=== PATIENT | male | born 1970 | race Caucasian/White ===

== ENCOUNTER 2017-06-10 14:08 | Emergency (ER) | payer SELFPAY ==
[2017-06-10 14:16] VITALS: BP 206/113; PULSE 112; RESP 18; TEMP 98.2; O2SAT 96
[2017-06-10] MEDS ORDERED: ASPI1TAB57 PO (14:17)
[2017-06-10] MEDS ORDERED: B P MED (14:17)
[2017-06-10] MEDS ORDERED: SODIUM CHLORIDE 0.9% FLUSH 10 ML FLUSH IVF PRN (14:45)
[2017-06-10] MEDS ORDERED: MORPHINE SULFATE 4 MG/ML INJ IV PUSH ONE (14:45)
[2017-06-10] MEDS ORDERED: SODIUM CHLOR 0.9% 1000 ML INJ 1,000 ML IV ONE ×2 (14:45→16:00)
[2017-06-10] MEDS ORDERED: ONDANSETRON HCL 4 MG/2 ML VIAL IV PUSH ONE (14:45)
[2017-06-10] MEDS ORDERED: RESP: ALBUTEROL 2.5 MG/IPRATROPIUM 0.5 MG NEB (SCH) NEB ONE (14:45)
--- NOTE | 2017-06-10 14:50 | RADRPT ---
EXAM DATE/TIME: 06/10/2017 14:38 [facility] COMPARISON: No previous studies available for comparison. INDICATIONS : Chest pain, short of breath, cough MEDICAL HISTORY : Hypertension. SURGICAL HISTORY : None. ENCOUNTER: Initial ACUITY: 1 week PAIN SCORE: 5/10 LOCATION: Bilateral chest FINDINGS: A single view of the chest demonstrates the lungs to be symmetrically aerated without evidence of mas s, infiltrate or effusion. The cardiomediastinal contours are unremarkable. Osseous structures are intact. CONCLUSION: Normal examination. Alexander Akbar MD on June 10, 2017 at 14:47 Board Certified Radiologist. This report was verified electronically.
--- NOTE | 2017-06-10 14:50 | PD ---
HPI Chief Complaint: Chest Pain Time Seen by Provider: 14:12 Travel History International Travel<30 days: No Contact w/Intl Traveler<30days: No Traveled to known affect area: No History of Present Illness HPI The patient is a 47-year-old male who presents to the emergency department with one week of cough and cold symptoms. The patient states his symptoms started last Sunday with facial congestion, nasal congestion, and a dry nonproductive cough. The patient now states he has a productive cough producing white sputum. He now complains of bilateral anterior chest tightness with shortness of breath as well as nausea, vomiting, and epigastric abdominal pain. The pain does radiate to the back to the left parascapular area and up to the left sternocleidomastoid. The pain is worse with coughing and movement. He does complain of mild shortness of breath, does have a history of tobacco use, and drinks alcohol on a daily basis. He denies any known history of pancreatitis. He denies any fever, however, has had intermittent chills and sweats. Symptoms are moderate, there are no current alleviating or exacerbating factors. He does not have a primary physician. [facility] Past Medical History Hypertension: Yes Past Surgical History Surgical History: No Previous Surgery Social History Alcohol Use: Yes (DAILY) Tobacco Use: Yes (1PPD) Substance Use: Yes (POT) Allergies-Medications (Allergen,Severity, Reaction): Coded Allergies: cephalexin (Verified Allergy, Severe, HIVES, 06/10/17) Reported Meds & Prescriptions Reported Meds & Active Scripts Active Reported [B.p. Med] 0 Aspirin 81 (Aspirin) 81 Mg Tabdr 81 Mg PO DAILY Review of Systems Except as stated in HPI: all other systems reviewed are Neg General / Constitutional: Positive: Chills, No: Fever HENT: Positive: Lightheadedness, Congestion Cardiovascular: Positive: Chest Pain or Discomfort Respiratory: Positive: Cough, Shortness of Breath Gastrointestinal: Positive: Nausea, Vomiting, Abdominal Pain Musculoskeletal: Positive: Myalgias Skin: No Rash Neurologic: Positive: Dizziness Physical Exam Narrative GENERAL: Awake, alert, pleasant 47-year-old male who appears his stated age and is in mild respiratory distress. SKIN: Focused skin assessment warm/dry. Multiple tattoos noted. HEAD: Atraumatic. Normocephalic. EYES: Pupils equal and round. Mild injection bilaterally. ENT: No nasal bleeding or discharge. Mucous membranes pink and moist. NECK: Trachea midline. No JVD. Tenderness over the left sternocleidomastoid. No meningeal signs. CARDIOVASCULAR: Regular, tachycardic with a heart rate of 115. RESPIRATORY: No accessory muscle use. Prolonged expiratory phase with intermittent wheezes. GASTROINTESTINAL: Abdomen soft, tender in the epigastrium. No guarding or rigidity. Back: No CVA tenderness. No tenderness over the midline of the thoracic spine, however, does have tenderness over the left thoracic paravertebral muscle. MUSCULOSKELETAL: No obvious deformities. No clubbing. No cyanosis. No edema. NEUROLOGICAL: Awake and alert. No obvious cranial nerve deficits. Motor grossly within normal limits. Normal speech. Nonfocal. PSYCHIATRIC: Appropriate mood and affect; insight and judgment normal. Data Data Last Documented VS Vital Signs Date Time Temp Pulse Resp B/P (MAP) Pulse Ox O2 Delivery O2 Flow Rate FiO2 06/10/17 14:16 98.2 112 18 206/113 (144) 96 Orders Orders Electrocardiogram (06/10/17 14:31) Ckmb (Isoenzyme) Profile (06/10/17 14:31) Complete Blood Count With Diff (06/10/17 14:31) Comprehensive Metabolic Panel (06/10/17 14:31) D-Dimer (06/10/17 14:31) Magnesium (Mg) (06/10/17 14:31) Prothrombin Time / Inr (Pt) (06/10/17 14:31) Act Partial Throm Time (Ptt) (06/10/17 14:31) Troponin I (06/10/17 14:31) Lipase (06/10/17 14:31) Chest, Single Ap (06/10/17 14:31) Ecg Monitoring (06/10/17 14:31) Bilateral Bp Monitoring (06/10/17 14:31) Iv Access Insert/Monitor (06/10/17 14:31) Oximetry (06/10/17 14:31) Oxygen Administration (06/10/17 14:31) Morphine Inj (Morphine Inj) (06/10/17 14:45) Sodium Chloride 0.9% Flush (Ns Flush) (06/10/17 14:45) Ondansetron Inj (Zofran Inj) (06/10/17 14:45) Sodium Chlor 0.9% 1000 Ml Inj (Ns 1000 M (06/10/17 14:45) Albuterol-Ipratropium Neb (Duoneb Neb) (06/10/17 14:45) Lactic Acid (06/10/17 14:31) Blood Culture (06/10/17 14:31) Influenzae A/B Antigen (06/10/17 14:51) CKMB (06/10/17 14:20) CKMB% (06/10/17 14:20) Ct Pulmonary Angiogram (06/10/17 ) Sodium Chlor 0.9% 1000 Ml Inj (Ns 1000 M (06/10/17 16:00) Methylprednisolone So Succ Inj (Solumedr (06/10/17 16:00) Iohexol 350 Inj (Omnipaque 350 Inj) (06/10/17 16:00) Labs Laboratory Tests Test 06/10/17 14:20 06/10/17 14:58 White Blood Count 10.2 TH/MM3 Red Blood Count 5.45 MIL/MM3 Hemoglobin 16.5 GM/DL Hematocrit 48.1 % Mean Corpuscular Volume 88.3 FL Mean Corpuscular Hemoglobin 30.4 PG Mean Corpuscular Hemoglobin Concent 34.4 % Red Cell Distribution Width 12.3 % Platelet Count 277 TH/MM3 Mean Platelet Volume 7.6 FL Neutrophils (%) (Auto) 51.4 % Lymphocytes (%) (Auto) 37.8 % Monocytes (%) (Auto) 8.5 % Eosinophils (%) (Auto) 1.5 % Basophils (%) (Auto) 0.8 % Neutrophils # (Auto) 5.1 TH/MM3 Lymphocytes # (Auto) 3.9 TH/MM3 Monocytes # (Auto) 0.9 TH/MM3 Eosinophils # (Auto) 0.2 TH/MM3 Basophils # (Auto) 0.1 TH/MM3 CBC Comment DIFF FINAL Differential Comment Prothrombin Time 9.9 SEC Prothromb Time International Ratio 1.0 RATIO Activated Partial Thromboplast Time 27.3 SEC D-Dimer Quantitative (PE/DVT) 0.39 MG/L FEU Blood Urea Nitrogen 13 MG/DL Creatinine 1.10 MG/DL Random Glucose 73 MG/DL Total Protein 8.5 GM/DL Albumin 4.1 GM/DL Calcium Level 8.8 MG/DL Magnesium Level 2.4 MG/DL Alkaline Phosphatase 116 U/L Aspartate Amino Transf (AST/SGOT) 50 U/L Alanine Aminotransferase (ALT/SGPT) 80 U/L Total Bilirubin 0.4 MG/DL Sodium Level 138 MEQ/L Potassium Level 3.6 MEQ/L Chloride Level 104 MEQ/L Carbon Dioxide Level 22.9 MEQ/L Anion Gap 11 MEQ/L Estimat Glomerular Filtration Rate 71 ML/MIN Total Creatine Kinase 139 U/L Creatine Kinase MB 0.8 NG/ML Troponin I LESS THAN 0.02 NG/ML Lipase 155 U/L Lactic Acid Level 2.2 mmol/L [facility] Medical Decision Making Medical Screen Exam Complete: Yes Emergency Medical Condition: Yes Medical Record Reviewed: Yes Interpretation(s) EKG reveals sinus tachycardia with a heart rate of 119. QTC 377 ms. Last Impressions Chest X-Ray 06/10/17 1431 Signed Impressions: Service Date/Time: Saturday, June 10, 2017 14:38 - CONCLUSION: Normal examination. Alexander Akbar MD CT pulmonary angiogram reveals no pulmonary embolus. The lungs are clear. Laboratory Tests Test 06/10/17 14:20 06/10/17 14:58 White Blood Count 10.2 TH/MM3 Red Blood Count 5.45 MIL/MM3 Hemoglobin 16.5 GM/DL Hematocrit 48.1 % Mean Corpuscular Volume 88.3 FL Mean Corpuscular Hemoglobin 30.4 PG Mean Corpuscular Hemoglobin Concent 34.4 % Red Cell Distribution Width 12.3 % Platelet Count 277 TH/MM3 Mean Platelet Volume 7.6 FL Neutrophils (%) (Auto) 51.4 % Lymphocytes (%) (Auto) 37.8 % Monocytes (%) (Auto) 8.5 % Eosinophils (%) (Auto) 1.5 % Basophils (%) (Auto) 0.8 % Neutrophils # (Auto) 5.1 TH/MM3 Lymphocytes # (Auto) 3.9 TH/MM3 Monocytes # (Auto) 0.9 TH/MM3 Eosinophils # (Auto) 0.2 TH/MM3 Basophils # (Auto) 0.1 TH/MM3 CBC Comment DIFF FINAL Differential Comment Prothrombin Time 9.9 SEC Prothromb Time International Ratio 1.0 RATIO Activated Partial Thromboplast Time 27.3 SEC D-Dimer Quantitative (PE/DVT) 0.39 MG/L FEU Blood Urea Nitrogen 13 MG/DL Creatinine 1.10 MG/DL Random Glucose 73 MG/DL Total Protein 8.5 GM/DL Albumin 4.1 GM/DL Calcium Level 8.8 MG/DL Magnesium Level 2.4 MG/DL Alkaline Phosphatase 116 U/L Aspartate Amino Transf (AST/SGOT) 50 U/L Alanine Aminotransferase (ALT/SGPT) 80 U/L Total Bilirubin 0.4 MG/DL Sodium Level 138 MEQ/L Potassium Level 3.6 MEQ/L Chloride Level 104 MEQ/L Carbon Dioxide Level 22.9 MEQ/L Anion Gap 11 MEQ/L Estimat Glomerular Filtration Rate 71 ML/MIN Total Creatine Kinase 139 U/L Creatine Kinase MB 0.8 NG/ML Troponin I LESS THAN 0.02 NG/ML Lipase 155 U/L Lactic Acid Level 2.2 mmol/L Differential Diagnosis Differential diagnosis includes bronchitis, pneumonia, ACS, pulmonary embolism, sepsis, pancreatitis, aortic dissection, influenza, viral syndrome. Narrative Course IV was established, labs are drawn and sent, and the patient was placed on cardiac telemetry monitoring and continuous pulse oximetry monitoring. EKG was ordered and interpreted. Influenza screen was sent to lab. Chest x-ray was obtained. The patient was administered morphine, Zofran, and IV fluids. Blood culture and lactic acid were sent to lab. The patient's troponin was unremarkable. CPK was normal. White count was within normal limits. Chest x- ray was unremarkable. The patient had tachycardia with unexplained chest pain and cough, therefore, CT pulmonary angiogram was ordered. CT pulmonary angiogram is negative, no evidence of pulmonary embolus. Patient's lipase is unremarkable. Patient most likely has a viral syndrome with secondary dehydration, lactic acid was 2.2. The patient's heart rate did improve with IV fluids. The patient be discharged home, will be treated for bronchitis with steroids, albuterol inhaler, cough medicine, and Zithromax. He is advised to follow-up with a primary physician. Diagnosis Primary Impression: Bronchitis Additional Impression: Atypical chest pain Patient Instructions: General Instructions Additional Instructions: Medications as directed. Follow-up with your primary physician. Stop smoking. Decrease alcohol intake. Please provide the patient a copy of his chest x- ray results, CT results, and lab results at discharge. Return if symptoms worsen or progress. Med/Other Pt SpecificInfo: Prescription(s) given Scripts Promethazine-Codeine Liq (Promethazine-Codeine Liq) 6.25-10 Mg/5 Ml Syrp 10 ML PO Q6H Y for COUGH AND/OR COLD SYMPTOMS, #480 ML 0 Refills Prov: Zeke Rose MD 06/10/17 Albuterol 18 GM Inh (Ventolin Hfa 18 GM Inh) 90 Mcg/Act Aer 2 PUFF INH Q4H Y for SHORTNESS OF BREATH, #1 INHALER 0 Refills Prov: Zeke Rose MD 06/10/17 Azithromycin (Zithromax Z-Jorge) 250 Mg Dspk 250 MG PO DIRECTED for Infection, #1 DSPK 0 Refills 500 MG (2 tabs) day 1, then 1 tab days 2-5. Prov: Zeke Rose MD 06/10/17 Prednisone (Deltasone) 20 Mg Tab 40 MG PO DAILY for 4 Days, #8 TAB 0 Refills Prov: Zeke Rose MD 06/10/17 Disposition: 01 DISCHARGE HOME Condition: Stable Zeke Rose MD Jun 10, 2017 14:50
[2017-06-10 15:01] LABS: AUTOMATED NEUTROPHIL # 5.1 TH/MM3 (1.8-7.7); BASOPHIL # 0.1 TH/MM3 (0-0.2); BASOPHIL % 0.8 % (0.0-2.0); EOSINOPHIL # 0.2 TH/MM3 (0-0.4); EOSINOPHIL % 1.5 % (0.0-4.0); HEMATOCRIT 48.1 % (39.0-51.0); HEMOGLOBIN 16.5 GM/DL (13.0-17.0); LYMPH % 37.8 % (9.0-44.0); LYMPHOCYTE # 3.9 TH/MM3 (1.0-4.8); MEAN CELL VOLUME 88.3 FL (80.0-100.0); MEAN CORPUSCULAR HEMOGLOBIN 30.4 PG (27.0-34.0); MEAN CORPUSCULAR HGB CONC 34.4 % (32.0-36.0); MEAN PLATELET VOLUME 7.6 FL (7.0-11.0); MONO % 8.5 % (0.0-8.0); MONOCYTE # 0.9 TH/MM3 (0-0.9); NEUT % 51.4 % (16.0-70.0); PLATELET COUNT 277 TH/MM3 (150-450); RED BLOOD COUNT 5.45 MIL/MM3 (4.50-5.90); RED CELL DISTRIBUTION WIDTH 12.3 % (11.6-17.2); WHITE BLOOD COUNT 10.2 TH/MM3 (4.0-11.0)
[2017-06-10 15:10] LABS: CHLORIDE 104 MEQ/L (98-107); SODIUM (NA) 138 MEQ/L (136-145)
[2017-06-10 15:15] LABS: ALBUMIN 4.1 GM/DL (3.4-5.0); BICARBONATE 22.9 MEQ/L (21.0-32.0); CALCIUM 8.8 MG/DL (8.5-10.1); LIPASE 155 U/L (73-393)
[2017-06-10 15:16] LABS: BLOOD UREA NITROGEN 13 MG/DL (7-18); GLUCOSE,RANDOM 73 MG/DL (74-106); MAGNESIUM 2.4 MG/DL (1.5-2.5); PROTHROMBIN TIME - PATIENT 9.9 SEC (9.8-11.6)
[2017-06-10 15:18] LABS: ALT (GPT) 80 U/L (12-78); AST (GOT) 50 U/L (15-37); GLOMERULAR FILTRATION RATE 71 ML/MIN (>89)
[2017-06-10 15:20] LABS: TOTAL BILIRUBIN ADULT 0.4 MG/DL (0.2-1.0); TOTAL PROTEIN 8.5 GM/DL (6.4-8.2)
[2017-06-10 15:21] LABS: ALKALINE PHOSPHATASE 116 U/L (45-117)
[2017-06-10 15:24] LABS: TROPONIN I LESS THAN 0.02 NG/ML (0.02-0.05)
[2017-06-10 15:31] LABS: D-DIMER 0.39 MG/L FEU (0.00-0.50)
[2017-06-10] MEDS ORDERED: methylPREDNISolone SOD SUCC 125 MG/2 ML VIAL IV PUSH ONE (16:00)
[2017-06-10] MEDS ORDERED: IOHEXOL 350 MG/ML 10 ML VIAL (for RAD DIAG) IVCONTRAST ONE (16:00)
--- NOTE | 2017-06-10 16:19 | RADRPT ---
EXAM DATE/TIME: 06/10/2017 15:46 [facility] COMPARISON: No previous studies available for comparison. INDICATIONS : Cough and intermittent chest pain since yesterday. Evaluate for embolism. IV CONTRAST: 65 cc Omnipaque 350 (iohexol) IV RADIATION DOSE: 15.58 CTDIvol (mGy) MEDICAL HISTORY : Hypertension. SURGICAL HISTORY : None. ENCOUNTER: Initial ACUITY: 2 days PAIN SCALE: 6/10 LOCATION: chest TECHNIQUE: Volumetric scanning of the chest was performed using a pulmonary embolism protocol MIP images were re constructed. Using automated exposure control and adjustment of the mA and/or kV according to patien t size, radiation dose was kept as low as reasonably achievable to obtain optimal diagnostic quality images. DICOM format image data is available electronically for review and comparison. Follow-up recommendations for detected pulmonary nodules are based at a minimum on nodule size and pa tient risk factors according to Fleischner Society Guidelines. FINDINGS: PULMONARY ARTERIES: No filling defects are seen in the pulmonary arteries through the segmental level. LUNGS: There is no consolidation or pneumothorax . No concerning pulmonary nodule is visualized. PLEURAE: There is no pleural thickening or pleural effusion. MEDIASTINUM: There is good visualization of the great vessels of the middle mediastinum. No evidence of mediastin al or hilar adenopathy/mass. Mild coronary artery calcifications are present. MUSCULOSKELETAL: Within normal limits for patient age. MISCELLANEOUS: The visualized upper abdominal organs demonstrate no acute abnormality. There is a 1.9 cm cyst at the superior left kidney. CONCLUSION: 1. No pulmonary embolus. 2. The lungs are clear. Nehemiah Barahona MD on June 10, 2017 at 16:08 Board Certified Radiologist. This report was verified electronically.
[2017-06-10] MEDS ORDERED: PRED-503 PO (16:23)
[2017-06-10] MEDS ORDERED: PROM6.256 PO (16:23)
[2017-06-10] MEDS ORDERED: VENTAER INH (16:23)
[2017-06-10] MEDS ORDERED: ZITHTAB PO (16:23)
[2017-06-10 16:25] VITALS: BP 211/110; PULSE 92; RESP 18; O2SAT 91
[2017-06-10 16:28] VITALS: O2SAT 92
[2017-06-10 17:47] VITALS: BP 191/108
--- NOTE | 2017-06-11 16:31 | EKG ---
Date Performed: 06/10/2017 Time Performed: 14:13:53 PTAGE: 47 years EKG: SINUS TACHYCARDIA ABNORMAL RHYTHM ECG INTERPRETATION BASED ON A DEFAULT AGE OF 39 YEARS NO PREVIOUS TRACING DOCTOR: Aleja Prajapati Interpretating Date/Time 06/11/2017 16:30:45
== END 2017-06-10 17:48 | disposition home or self-care (01) ==
LOC: PHED 14:08
DX: J40 Bronchitis, not specified as acute or chronic (principal); I10 Essential (primary) hypertension; F17.200 Nicotine dependence, unspecified, uncomplicated
CPT/HCPCS: 71010; 71275; 80053; 82550; 82552; 83605; 83690; 83735; 84484; 85025; 85379; 85610; 85730; 87040; 87804; 93005; 94664; 96361; 96374; 96375; 99285; J2270; J2405; J2930; J7030; Q9967